=== PATIENT | female | born 1975 | race Two or more races ===

== ENCOUNTER 2018-01-15 10:59 | Outpatient (CLI) | payer OTHER ==
[~2018-01-15 10:59] MED LIST: ULTRACET PO
== END 2018-01-15 11:11 | disposition home or self-care (01) ==
LOC: SONOGRAMA 10:59
DX: E03.8 Other specified hypothyroidism (principal); M79.7 Fibromyalgia

== ENCOUNTER → 2018-02-19 | Outpatient (CLI) | payer OTHER | END | disposition home or self-care (01) | LOC: MAMO-SONO 11:28 | DX: D25.9 Leiomyoma of uterus, unspecified (principal); Z12.31 Encounter for screening mammogram for malignant neoplasm of breast ==

== ENCOUNTER 2018-03-20 09:43 | Outpatient (CLI) | payer OTHER | END 2018-03-20 09:55 | disposition home or self-care (01) | LOC: SONOGRAMA 09:43 → MAMO-SONO 10:15 | DX: N92.0 Excessive and frequent menstruation with regular cycle (principal); N84.0 Polyp of corpus uteri ==

== ENCOUNTER 2018-04-29 10:49 | Outpatient (CLI) | payer OTHER | END 2018-04-29 10:59 | disposition home or self-care (01) | LOC: RAD 10:49 | DX: Z13.6 Encounter for screening for cardiovascular disorders (principal) ==

== ENCOUNTER 2018-05-10 05:30 | Day surgery (SDC) | payer OTHER ==
[~2018-05-10 05:30] MED LIST changes: +CIMBALTA PO; +GABAPENTIN800 MG PO; +IMITREX100 MG PO; +INDERAL LA80 MG PO; +NORFLEX PO; +SKELAXIN800 MG PO; +SYNTHROID137 MCG PO
== END 2018-05-10 13:15 | disposition home or self-care (01) ==
LOC: CIR.AMB 05:30
DX: N84.0 Polyp of corpus uteri (principal)

== ENCOUNTER 2018-11-15 11:16 | Outpatient (CLI) | payer OTHER | END 2018-11-15 11:19 | disposition home or self-care (01) | LOC: SONOGRAMA 11:16 | DX: D50.8 Other iron deficiency anemias (principal); E03.8 Other specified hypothyroidism; R06.09 Other forms of dyspnea ==

== ENCOUNTER 2019-06-04 16:26 | Emergency (ER) | payer OTHER ==
[~2019-06-04] VITALS: Ht 175.3 cm; Wt 96.2 kg
== END 2019-06-04 22:02 | disposition home or self-care (01) ==
LOC: ER 16:26
DX: K62.5 Hemorrhage of anus and rectum (principal); R10.13 Epigastric pain

== ENCOUNTER → 2019-09-08 | Outpatient (CLI) | payer OTHER | END | disposition home or self-care (01) | LOC: RAD 10:36 | DX: M16.0 Bilateral primary osteoarthritis of hip (principal); M54.5 Low back pain; M17.0 Bilateral primary osteoarthritis of knee; M19.041 Primary osteoarthritis, right hand; M19.042 Primary osteoarthritis, left hand ==

== ENCOUNTER 2021-09-27 23:45 | Emergency (ER) | payer OTHER ==
[~2021-09-27] VITALS: Ht 172.7 cm; Wt 98.0 kg
[2021-09-27] MEDS ORDERED: VERAPAMIL ER100 MG (23:59)
[2021-09-27] MEDS ORDERED: CELEBREX200MG (23:59)
== END 2021-09-29 02:30 ==
LOC: ER 23:45
DX: D50.0 Iron deficiency anemia secondary to blood loss (chronic) (principal)
CPT/HCPCS: 76830; 86904; 36430; 86922; P9021

== ENCOUNTER 2023-03-23 15:42 | Emergency (ER) | payer OTHER ==
[~2023-03-23] VITALS: Ht 175.3 cm; Wt 94.8 kg
[~2023-03-23 15:42] MED LIST changes: +CELEBREX200MG; +VERAPAMIL ER100 MG
== END 2023-03-24 14:01 | disposition home or self-care (01) ==
LOC: ER 15:42
DX: N92.1 Excessive and frequent menstruation with irregular cycle (principal); D64.9 Anemia, unspecified; N84.0 Polyp of corpus uteri; G43.909 Migraine, unspecified, not intractable, without status migrainosus

== ENCOUNTER 2023-04-03 14:02 | Outpatient (CLI) | payer OTHER | END 2023-04-03 14:30 | disposition home or self-care (01) | LOC: MAMO-SONO 14:02 | PROVIDERS: ATTEND Specialist | DX: Z12.31 Encounter for screening mammogram for malignant neoplasm of breast (principal); E03.9 Hypothyroidism, unspecified ==

== ENCOUNTER 2025-01-08 08:10 | Outpatient (CLI) | payer OTHER ==
[~2025-01-08 08:10] MED LIST changes: +CYMBALTA60 MG PO; +GABAPENTIN800 M1 PO; +NEURONTIN300 MG; +PERCOCET 5-3251 EACH PO; +SYMBYAX 3-25 M1 EACH; +TOPAMAX25 MG PO
== END 2025-01-08 08:15 | disposition home or self-care (01) ==
LOC: RAD 08:10
PROVIDERS: ATTEND Internal Medicine
DX: M17.0 Bilateral primary osteoarthritis of knee (principal); M54.51 Vertebrogenic low back pain; M79.7 Fibromyalgia